=== PATIENT | female | born 1995 | race Caucasian/White ===

== ENCOUNTER → 2017-05-24 14:25 | Observation (INO) ==
[2017-05-24 13:00] LABS: Basophils % 0.3 %; Eosinophils # 0.2 K/mcL (0.0-0.6); Eosinophils % 1.6 %; Hematocrit 27.2 % (35.3-44.9); Hemoglobin 8.8 g/dL (11.5-15.4); Immature Granulocytes % 1.3 % (0-4); Lymphocytes # 2.2 K/mcL (0.6-4.6); Lymphocytes % 22.4 %; Mean Corpuscular HGB Conc 32.4 g/dL (31.6-35.5); Mean Corpuscular Hemoglobin 24.6 pg (28.0-33.3); Mean Corpuscular Volume 76.2 fL (83.0-100.0); Mean Platelet Volume 9.9 fL (9.4-12.4); Monocytes # 0.7 K/mcL (0.0-1.3); Monocytes % 6.7 %; Neutrophils # 6.7 K/mcL (1.6-8.9); Platelet Count 231 K/mcL (140-400); Red Blood Count 3.57 M/mcL (3.82-4.97); Red Cell Distribution Width 15.6 % (11.5-14.5); Segmented Neutrophils % 67.7 %
[2017-05-24 13:17] LABS: Alanine Aminotransferase 11 Units/L (7-52); Aspartate Amino Transferase 15 Units/L (13-39); BUN/Creatinine Ratio 10 (6-26); Blood Urea Nitrogen 5 mg/dL (6-20); Lactate Dehydrogenase 143 Units/L (140-271); Uric Acid 4.7 mg/dL (2.3-7.6); eGFR For African Americans > 60 (> 60); eGFR For Non-African Americans > 60 (> 60)
[2017-05-24 13:25] LABS: Amphetamine Screen,Urine Negative ng/mL (Cutoff=1000); Barbiturate Screen,Urine Negative ng/mL (Cutoff=200); Benzodiazepines Screen,Urine Negative ng/mL (Cutoff=200); Cannabinoid Screen,Urine Negative ng/mL (Cutoff = 50); Cocaine Screen,Urine Negative ng/mL (Cutoff= 300); Opiate Screen,Urine Negative ng/mL (Cutoff=300); Phencyclidine Screen,Urine Negative ng/mL (Cutoff=25)
[2017-05-24 13:37] LABS: Protein/Creatinine Ratio,Urine 0.12 mg/mg (0.00-0.20)
[~2017-05-24 14:25] MED LIST: Scopolamine Patch 1.5 MG PATCH.TD72 TD ONE
--- NOTE | 2017-05-24 14:37 | OB/GYN Progress Note ---
Date of Encounter: 05/24/17 Time of Encounter: 14:35 - Assessment and Plan (1) 35 weeks gestation of Status: Acute (2) Elevated blood pressure affecting in third trimester, antepartum Status: Acute Blood pressures are normal in triage, 119/70-126/75, 136/76. All [facility] labs negative Discharge home with labor, and [facility] precautions (3) Anemia affecting in third trimester Status: Acute Hemoglobin 8.8, instructed patient to increase iron to twice daily Subjective - Subjective Interval history: Patient with elevated blood pressures and office sent over for [facility] evaluation. Reports good movement of both fetuses, and occasional contractions denies vaginal bleeding or leaking of fluid, headache, right upper quadrant pain, or visual changes. Patient does state she does have significant heartburn that has increased over the last week. Antepartum ROS: movement normal, no loss of fluid, no vaginal bleeding, no contractions Objective - Vital Signs Vital Signs: Intake and Output 05/23/17 05/24/17 05/24/17 23:59 07:59 15:59 Other: Weight 87.9 kg Patient Weight 05/24/17 23:59 Weight 87.9 kg - Exam FHR: auscultation normal FHR comments: A-135 B-140 Auscultation: bilateral: normal Abdomen: Present: normal appearance, soft, gravid - Labs Labs: Abnormal lab results RBC 3.57 M/mcL (3.82-4.97) L 05/24/17 12:01 Hgb 8.8 g/dL (11.5-15.4) L 05/24/17 12:01 Hct 27.2 % (35.3-44.9) L 05/24/17 12:01 MCV 76.2 fL (83.0-100.0) L 05/24/17 12:01 MCH 24.6 pg (28.0-33.3) L 05/24/17 12:01 RDW 15.6 % (11.5-14.5) H 05/24/17 12:01 BUN 5 mg/dL (6-20) L 05/24/17 12:01 Creatinine 0.49 mg/dL (0.60-1.20) L 05/24/17 12:01
== END | disposition home or self-care (01) ==
LOC: 1NENULAB
PROVIDERS: ADMIT Obstetrics & Gynecology; ATTEND Obstetrics & Gynecology